=== PATIENT | male | born 2000 | race Caucasian/White ===

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

== ENCOUNTER 2020-09-25 11:12 | Day surgery (SDC) | payer OTHER ==
[~2020-09-25] VITALS: Ht 403.9 cm; Wt 68.2 kg
[2020-09-25 12:44] VITALS: BP 120/58; Ht 403.9 cm; Wt 68.2 kg
[2020-09-25] MEDS ORDERED: HUMIRA (12:53)
--- NOTE | 2020-09-25 14:10 | NUR ---
DR CALDERON AT BEDSIDE 1440 DC TEACHING COMPLETE TO PT AND MOM, VERBALIZED UNDERSTANDING. PIV REMOVED, CATHETER INTACT. 1448 PT DC'D VIA WC TO POV WITH ALL BELONGINGS AND DC PACKET. MOM DRIVING.
--- NOTE | 2020-09-26 06:38 | OP ---
PATIENT NAME: LANDRY ROBERTS MEDICAL RECORD: [id number] :99 LOCATION:[facility] ADMISSION DATE: SURGEON: GINO CALDERON DO DATE OF OPERATION: 09/25/2020 PROCEDURE: Colonoscopy with biopsies. INDICATION FOR THE PROCEDURE: Ulcerative colitis. SCOPE: Olympus video pediatric colonoscope. MEDICATION: Propofol 460 mg IV per anesthesia. WITHDRAWAL TIME: 11 minutes. ESTIMATED BLOOD LOSS: Minimal. COMPLICATIONS: None. FINDINGS AND DESCRIPTION OF PROCEDURE: Informed consent was given. The patient was made comfortable with the above medication. After reaching an adequate level of sedation by slow IV push, the patient was placed on his left side. A digital rectal examination was performed and was normal. The endoscope was advanced under direct visualization through the rectum to the cecum and terminal ileum. The endoscope was slowly withdrawn and the mucosa was carefully examined. The prep quality was good. Images were significantly improved from his previous colonoscopy in October of 2018. 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 On today's examination, there were a couple areas of mild colitis, which were located in the rectosigmoid junction and sigmoid colon in a patchy distribution. There were no significant ulcerations, but there was loss of vascularity and congestion of the mucosa. Random cold forceps biopsies were taken from the ascending colon as well as the transverse, descending, and sigmoid colon sites. These were into containers to look at activity of colitis throughout each segment. That being said, the remainder of the colon outside of these 2 patches in the rectosigmoid junction and sigmoid colon looked completely normal. Terminal ileum was normal. Retroflexion was performed in the rectum with visualization of grade I internal hemorrhoids without bleeding. The endoscope was withdrawn from the patient. The patient tolerated the procedure well and there were no complications. IMPRESSIONS: 1. Very mildly active colitis in the sigmoid and rectosigmoid junction. 2. Otherwise, normal colonoscopy to cecum and terminal ileum. 3. Grade I internal hemorrhoids without bleeding. PLAN AND RECOMMENDATIONS: 1. Discharge home when recovery parameters are met. 2. Follow up biopsy specimen results. 3. Continue current diet. 4. Continue current medications. 5. Follow up in GI clinic within a year. 6. Repeat colonoscopy in 3 years. TRANSINT:[id number] Voice Confirmation ID: [id number] DOCUMENT ID: [id number] OPERATIVE REPORT [id number] LANDRY ROBERTS NATHAN A DO at 0638 CC: [id number] DICTATION DATE: 09/25/20 1404 EXPENSE CLERK: 09/25/20 1528 [facility] 09/25/20 [id number] [place] [address]
== END 2020-09-25 14:50 | disposition home or self-care (01) ==
LOC: D.OPS 11:12
PROVIDERS: ATTEND Internal Medicine Gastroenterology
DX: K51.90 Ulcerative colitis, unspecified, without complications (principal); K64.0 First degree hemorrhoids; Z12.11 Encounter for screening for malignant neoplasm of colon